=== PATIENT | male | born 1975 | race African-American/Black ===

== ENCOUNTER 2019-07-08 06:22 | Inpatient (IN) ==
[2019-07-08] MEDS ORDERED: ZOFRAN IV ONE (06:52)
--- NOTE | 2019-07-08 06:52 | PROVIDER DOCUMENTATION ---
HPI-Abdominal Pain/GI Problem - General Chief Complaint: Weakness Stated Complaint: LOW BP Time Seen by Provider: 07/08/19 06:41 Source: patient Allergies/Adverse Reactions: Patient Allergies Allergy/AdvReac Type Severity Reaction Status Date / Time No Known Allergies Allergy Verified 07/08/19 06:31 Home Medications: Home Medication List Medication Instructions Recorded Confirmed Last Taken Type Amlodipine Besylate 10 mg PO BID 06/06/15 07/08/19 08/11/18 06:00 History Folic Acid/Vit B Complex and C 1 tab PO DAILY 04/20/18 07/08/19 08/11/18 06:00 History [Dialyvite Tablet] Labetalol HCl 300 mg PO BID 04/20/18 07/08/19 08/11/18 06:00 History Iron Carbonyl/Ascorbic Acid 1 tab PO BID #120 tab 04/24/18 07/08/19 08/11/18 06:00 Rx [Icar-C] Albuterol Sulfate [Proair Hfa] 1 puff INH DAILY 07/08/19 07/08/19 Unknown History Budesonide/Formoterol Fumarate 1 puff INH DAILY 07/08/19 07/08/19 Unknown History [Symbicort 160-4.5 Mcg Inhaler] Sevelamer Carbonate 1 tab PO TID 07/08/19 07/08/19 Unknown History - History of Present Illness-ABD Nature of Presenting Problems: Presents to the with complaints of nausea and vomiting that started around 2am this morning. He states that he has vomited about 10-12 times and is vomiting up black stuff. He denies any abd ominal pain, diarrhea or constipation. He is ESRD patient and does not make urine. Denies fevers or chills. Denies sick contacts. Did not try anything at home. Review of Systems - Adult - REVIEW OF SYSTEMS - ADULT Constitutional: reports: see HPI Eyes: reports: no symptoms reported Ears, Nose, Mouth & Throat: reports: no symptoms reported Cardiovascular: reports: no symptoms reported Respiratory: reports: no symptoms reported Gastrointestinal: reports: see HPI, hematemesis, nausea, vomiting. denies: constipation, diarrhea Genitourinary: reports: no symptoms reported, see HPI Musculoskeletal: reports: no symptoms reported Integumentary: reports: no symptoms reported Neurological: reports: no symptoms reported Psychiatric: reports: no symptoms reported Endocrine: reports: no symptoms reported Hematologic/Lymphatic: reports: no symptoms reported Allergic/Immunologic: reports: no symptoms reported All Other Systems: Reviewed and Negative Past History - Adult - PAST MEDICAL HISTORY-ADULT Review of Records: reports: Old Records Reviewed Major Childhood Illnesses: reports: denies history Cardiovascular: reports: HTN Respiratory: reports: denies history Gastrointestinal: reports: denies history Obstetrical/Gynecological: reports: denies history Genitourinary: reports: dialysis, kidney disease (reports no problems producing urine) Musculoskeletal: reports: denies history Neurological: reports: denies history Endocrine/Immune: reports: other (gout) Other Conditions: reports: denies history - PRIOR SURGERIES/PROCEDURES Surgical/Procedure History: reports: indwelling device (dialysis shunt ) - IMMUNIZATION STATUS Childhood Immunizations: UTD Flu Vaccine: See Nurse Assessment - FAMILY HISTORY Family History: reviewed, not pertinent Physical Exam-General - PHYSICAL EXAM-ADULT Initial Vital Signs Reviewed: Yes - CONSTITUTIONAL General Appearance: appears well, alert (uncomfortable appearing), mild distress - EYES Eyes: PERRL/EOMI - HEAD, EARS, NOSE, MOUTH & THROAT HENMT: normocephalic/atraumatic - NECK Neck: non-tender, full range of motion, supple, normal inspection - RESPIRATORY Respiratory: chest non-tender, lungs clear, normal breath sounds, no respiratory distress, no accessory muscle use - CARDIOVASCULAR Cardiovascular: normal peripheral pulses, regular rate, rhythm, no murmur - GASTROINTESTINAL (ABDOMEN) Abdominal Exam: normal bowel sounds, non tender, soft - MUSCULOSKELETAL Back Exam: normal inspection Extremity: normal range of motion, non-tender, normal gait, normal inspection, other (fistula on LUE) - SKIN Integumentary: normal color, warm/dry - NEUROLOGIC Neurologic: grossly normal - PSYCHIATRIC Psych/Mental Status: normal mood/affect, oriented x 3 Progress - PLAN OF CARE/RESULTS Progress/Plan/Lab Results: Vital Signs - 8 hr 07/08/19 06:24 Temperature 97.4 F L Pulse Rate 77 Respiratory Rate 16 Blood Pressure 131/75 O2 Sat by Pulse Oximetry 100 Result Diagrams: 07/08/19 07:15 07/08/19 07:15 - REASSESSMENT Reassessment #1 Time Reassessed: 07:40 Status: unchanged (shift change assessment: pt reports coffee grinds emesis since 2a. he also cc: headache. he has a PMHx of GIH as follows: DISCHARGE DIAGNOSES: 1. Pyloric channel ulcer on esophagogastroduodenoscopy performed on 04/21/[address] Kim. hemodynamically stable at present. will obtain stool guiaic, IV protonix ordered w/ NS. Dilaudid for pain) Reassessment #2 Time Reassessed: 08:38 Status: improving (pain improved w/ Rx; Hb stable (@ high end of pt' historic range), stool guiaic pos: will consult w/ Dr. Pham, expect admission via Hospitalist.) - CONSULTS/PCP/HOSPITALIST Notification #1 *Consult/PCP/Hospitalist*: Idalia Time Discussed: 08:52 Consult Disposition: Admit (Dr. Pham also paged.) - CHANGE OF SHIFT REPORT (ED Provider) 1 Report Given and Care Transferred to:: Dr Infante Time of Transfer: 07:00 Items Pending: Labs Departure - Departure Date of Disposition Decision: 07/08/19 Time of Disposition Decision: 08:53 DIAGNOSIS: Upper GI bleeding, ESRD (end stage renal disease) on dialysis Disposition: ADMITTED INPATIENT 09 Certified Medical Emergency: Emergent Condition: Serious Referrals and Follow-Ups: Ronald Vail Jr, MD [Primary Care Provider] - - Critical Care Note This patient required my direct & personal management of CC.: Yes Total Time (mins): 30 Critical Care Statement: This patient required my direct personal management to treat or rule out processes, the absence of which, could potentiallly result in sudden, clinically significant life or limb threatening deterioration. Attestation - Physician/ DOM Attestation The physician spent face to face time with patient:: Yes Advanced Practice Provider documentation review:: Supervising physician onsite and consulted in the evaluation and care of this patient. The physician did have a face to face encounter with the patient.
[2019-07-08 07:33] LABS: BASO# 0.04 X1000 (0.0-0.2); BASO% 0.5 % (0.0-0.8); EOS# 0.06 X1000 (0.0-0.7); EOS% 0.8 % (0.0-10.0); HEMATOCRIT 28.5 % (42.0-52.0); HEMOGLOBIN 9.2 g/dL (14.0-18.0); LYMPH# 1.35 X1000 (1.2-3.4); LYMPH% 17.7 % (20.5-51.1); MCH 30.7 PG (27-31); MCHC 32.3 g/dL (33-37); MONO# 0.58 X1000 (0.11-0.59); MONO% 7.6 % (1.7-9.3); MPV 10.8 FL (7.4-10.4); NEUT% 73.4 % (42.2-75.2); PLT 204 X1000 (130-400); RDW 13.2 % (11.5-14.5); WBC 7.63 X1000 (4.8-10.8)
[2019-07-08] MEDS ORDERED: DILAUDID IV ONE (07:36)
[2019-07-08] MEDS ORDERED: NS 1,000 ML IV ONE (07:36)
[2019-07-08] MEDS ORDERED: SODIUM CHLORIDE 0.9% INJ ONE (07:37)
[2019-07-08] MEDS ORDERED: PROTONIX IV ONE (07:37)
[2019-07-08 07:41] LABS: INR 1.21; PROTIME 15.5 Seconds (11.0-16.0)
[2019-07-08 07:56] LABS: ALB/GLOB RATIO 1.4; ALBUMIN 3.9 g/dL (3.5-5.0); CALCIUM 8.1 mg/dL (8.8-10.2); CREATININE 14.8 mg/dL (0.7-1.2); POTASSIUM 4.2 mmol/L (3.5-5.1); TOTAL BILIRUBIN 0.21 mg/dL (0.20-1.00); TOTAL PROTEIN 6.7 g/dL (6.3-8.3)
--- NOTE | 2019-07-08 08:54 | EKG Report ---
Test Performed on : 07/08/2019 07:19:00 AM Test Reason : EPIGASTRIC PAIN Blood Pressure : / mmHG Vent. Rate : 064 BPM Atrial Rate : 064 BPM P-R Int : 124 ms QRS Dur : 092 ms QT Int : 430 ms P-R-T Axes : 046 022 007 degrees QTc Int : 443 ms Normal sinus rhythm. Nonspecific T wave abnormality Abnormal ECG When compared with ECG of 21-APR-2018 12:11, Nonspecific T wave abnormality now evident in Anterolateral leads Unconfirmed Result
[2019-07-08] MEDS ORDERED: TYLENOL PO PRN (09:00)
[2019-07-08] MEDS ORDERED: ICAR-C PO SCH (09:00)
[2019-07-08] MEDS ORDERED: SODIUM CHLORIDE 0.9% INJ SCH (09:00)
[2019-07-08] MEDS ORDERED: ZOFRAN IV PRN (09:00)
[2019-07-08 09:38] LABS: HEMOGLOBIN A1C 4.5 % (4.8-6.0); IRON SATURATION 83 %; TIBC 197 ug/dL; TOTAL IRON 164 ug/dL (53-167); UNBOUND IRON 33 ug/dL (112-346)
--- NOTE | 2019-07-08 09:42 | HISTORY AND PHYSICAL ---
HISTORY OF PRESENT ILLNESS: Mr. Tejada is a 43-year-old patient of Dr. Ronald Vail. He presented, stating that he was feeling fine until this morning. He developed nausea, abdominal cramping, threw up, and had blood in his emesis or what he described as coffee-grounds material. PAST MEDICAL HISTORY: 1. He has had a pyloric channel ulcer, EGD done in March of [address] Kim, was put on high-dose Protonix. 2. He has chronic kidney disease stage 5D. 3. He has had trouble in the past with constipation. 4. Hypertension. ALLERGIES: He denies any known drug allergies. He does have a history of hypertension. He has a history of obstructive sleep apnea and apparently in the past, they found a pyloric channel ulcer. He was using nonsteroidal anti- inflammatories. He has been on proton pump inhibitor and presents again with hematemesis. PHYSICAL EXAMINATION: VITAL SIGNS: Temperature 97.4 degrees, pulse 63, respirations 12, blood pressure 120/76. HEENT: Pupils are equal and round. LUNGS: Clear in all lung renee. CARDIOVASCULAR EXAMINATION: Regular rhythm and rate without murmur or S3. ABDOMEN: Soft. No abdominal tenderness. SKIN: Warm and dry. Conjunctivae pink. Gingiva color looks good. LABORATORY DATA: White count 7630, hematocrit is 28, hemoglobin 9.2, platelet count 208,000. Sodium 141, potassium 4.2, chloride 93, BUN 120, creatinine is 14.8, blood sugar 96. AST is 10, ALT is 11, alkaline phosphatase is 45. Prothrombin time is 15.5, INR 1.21, PTT is 28. His stool apparently was Hemoccult positive. ASSESSMENT AND PLAN: 1. Upper gastrointestinal bleed, history of pyloric channel ulcer in the past. I think the last esophagogastroduodenoscopy was on 04/21/[address] Kim. He was on high-dose Protonix for 3 months and then I think they tapered that down. He also was using nonsteroidals at that time. 2. Anemia. We will watch his hematocrit and hemoglobin. 3. End-stage renal disease or chronic kidney disease stage 5D, hemodialysis Mondays, Wednesdays, and Fridays. His volume status looks good. Electrolytes look good. Acid-base status looked good. 4. Continue his bowel regimen if needed. REVIEW OF HIS ORDERS: On Symbicort 160/4.5 one puff daily, folic acid, vitamin B complex and vitamin C 1 tablet a day, iron/carbonyl/ascorbic acid 1 tablet b.i.d., labetalol 300 mg p.o. b.i.d., sevelamer 1 tablet t.i.d., amlodipine 10 mg b.i.d. We will continue that regimen and put on high-dose proton pump inhibitors, 40 mg p.o. twice a day. cc: Fidel Zamora MD
[2019-07-08] MEDS ORDERED: PRILOSEC PO SCH (10:07)
[2019-07-08] MEDS: PROTONIX 80 MG in NS 80 ML IV SCH ×2 (11:27→21:01)
[2019-07-08 11:36] LABS: FREE T4 1.19 ng/dL (0.93-1.70); TSH 1.36 uIUmL (0.27-4.20)
[2019-07-08] MEDS ORDERED: DILAUDID IV PRN (12:34)
--- NOTE | 2019-07-08 13:13 | PROGRESS NOTE ---
DATE: 07/08/2019 Mr. Tejada is feeling much better. He is breathing comfortably. He does complain of constipation so I am going to start him on some MiraLAX, give him some milk of magnesia. OBJECTIVE: Temperature 98.5 degrees, pulse 60, respirations 16, blood pressure 143/76. Pupils are equal and round.Lungs: Clear in all lung renee. Cardiovascular: Regular rhythm and rate without murmur or S3. Abdomen: Soft. Skin: Warm and dry. ASSESSMENT AND PLAN: Good urine output by report. No new lab today. Note his creatinine is 14.8. We will need to continue to follow that. He is complaining of some pain and so I just put him in from the emergency room. He has a history of epigastric pain and of course upper gastrointestinal bleeding. I will let him have some Dilaudid for now. cc: Fidel Zamora MD
--- NOTE | 2019-07-08 14:24 | Diag Imaging Result Doc PS360 ---
EXAM: CT ABDOMEN/PELVIS W/O CONTRAST INDICATION: gib; abd pain TECHNIQUE: This exam was performed using automated exposure control, adjustment of mA or kV according to patient size, and/or use of iterative reconstruction technique. COMPARISON: 04/20/2018 FINDINGS: There is stable chronic pleural thickening as well as parenchymal fibrosis at the right lung base there are small calcifications associated with the pleural thickening. The liver, gallbladder, spleen, pancreas, and adrenal glands are essentially unremarkable. There is marked bilateral renal atrophy and a couple of low dense cystic appearing lesions associated with the right kidney, stable. The urinary bladder is nondistended. The appendix is normal. There are a few loops of small bowel that are mildly distended and contain gas. These are predominantly on the left side of the abdomen. Consider mild ileus related to enteritis. However, no significant bowel wall thickening is appreciated. There is nothing to indicate bowel obstruction. The remainder of the GI tract is grossly unremarkable. No focal inflammatory changes, free abdominal gas, or free fluid is identified. IMPRESSION: 1.Several mildly distended gas-filled loops of small bowel that are nonspecific. Consider mild ileus. 2.Other incidental/nonacute findings detailed above that are essentially stable as compared to the previous study. Electronically signed by Og Burnette 07/08/2019 2:22 PM
[2019-07-08] MEDS: NEPHRO-VITE PO SCH (15:08)
[2019-07-08] MEDS: NORVASC PO SCH ×2 (15:09→20:49)
[2019-07-08] MEDS: RENAGEL PO SCH ×2 (15:10→16:24)
[2019-07-08] MEDS: TRANDATE PO SCH ×2 (15:10→20:49)
[2019-07-08] MEDS: CARAFATE LIQUID PO SCH ×2 (15:11→20:49)
[2019-07-08 15:47] LABS: HEMOGLOBIN 7.4 g/dL (14.0-18.0)
[2019-07-08 15:48] LABS: HEMATOCRIT 23.3 % (42.0-52.0)
--- NOTE | 2019-07-08 16:38 | ED EKG INTERP ---
This chart was entered by Shanita Sheriff Scribe, acting as scribe for George Infante MD. EKG Interpretation - EKG Time of EKG reading by physician:: 07:33 EKG Read and Signed by:: George Infante EKG Interpretation (*Must complete 3 of following elements*): Abnormal Rate: 64 Rhythm: NSR [place]: normal QRS: normal CT Interval: normal ST Wave: non-specific ST changes Attestation - Physician/ DOM Attestation Patient care was provided by Advanced Practice Provider:: No The physician spent face to face time with patient:: Yes Advanced Practice Provider documentation review:: Supervising physician onsite and consulted in the evaluation and care of this patient. The physician did have a face to face encounter with the patient. This chart was documented by the indicated scribe, (Shanita Sheriff Scribe) and accurately reflects the services I performed and decisions made by me, George Infante MD, as attested by the provider's signature.
--- NOTE | 2019-07-08 17:15 | GASTROENTEROLOGY CONSULTATION ---
DATE: 07/08/2019 GASTROENTEROLOGY CONSULTATION: REQUESTING PHYSICIAN: Dr. Fidel Zamora. PRIMARY CARE PHYSICIAN: Dr. Ronald Vail. REASON FOR CONSULTATION: Nausea, vomiting, and vomiting coffee grounds. HISTORY OF PRESENT ILLNESS: Mr. Tejada is a 43-year-old male who was admitted today for new onset of nausea, vomiting, and coffee-ground emesis. The patient has history of chronic back pain. It got exacerbated for the last 3 weeks, and he has been taking Aleve every day for the last 3 weeks. This morning around 2 a.m. when he woke up, he had nausea and vomiting to about 8 to 10 times and noticed some coffee-colored brown fluid in the vomitus. He denies any Blood in the stools. He had a history of ulcer on last EGD done a few years ago. According to the records, he had a pyloric channel ulcer on EGD in March [address] Kim. The patient has a history of end-stage renal disease on hemodialysis Tuesday, Tuesday, and Tuesday being managed by Dr. Pham. PAST MEDICAL HISTORY: 1. Pyloric channel ulcer on last EGD in March [address] Kim. 2. Chronic kidney disease. 3. End-stage renal failure on hemodialysis. 4. Constipation. 5. Hypertension. 6. Obstructive sleep apnea. 7. History of NSAID abuse. PAST SURGICAL HISTORY: Dialysis shunt placement. SOCIAL HISTORY: Denies any alcohol, tobacco, or illicit drug abuse. ALLERGIES: No known drug allergies. MEDICATIONS IN THE HOSPITAL: Include Dilaudid 1 mg IV every 3 hours as needed. Tylenol. Albuterol inhaler. Amlodipine. Budesonide/formoterol. Folic acid/vitamin B complex. Iron C b.i.d. Labetalol 300 mg p.o. b.i.d. Zofran 4 mg IV every 4 hours as needed. Protonix drip. Renagel 800 mg p.o. t.i.d. Carafate 1 g every 6 hours. The patient currently n.p.o. except for ice chips. REVIEW OF SYSTEMS: Denies any fevers, rigors, chills, chest pain, shortness of breath. Denies any melena. Denies any blood in the stools. Does complain of coffee-round emesis. He does complain of abdominal pain in the epigastric region which is now improved with IV pain control. He does have chronic back pain. He has had kidney failure. He is on hemodialysis Tuesday, Tuesday, and Tuesday. He denies any neurologic complaints. PHYSICAL EXAMINATION: Vital signs: Temperature of 98.8, pulse rate 57, respiratory rate 18, blood pressure 132/72, saturating 100% on room air. Body weight of 250 pounds, BMI 36.9 kg/m2. General: Moderately nourished lying in bed, in no acute distress. HEENT: Pale conjunctivae. No icterus. Pupils equal, reactive to light. Neck: Supple. Abdomen: Discomfort in epigastrium. No rebound or guarding. Extremities: No cyanosis or clubbing. Neurologic: Alert, awake, oriented x3. LABORATORY DATA: Hemoglobin and hematocrit 7.4 and 23.3, white count of 7.63, platelet count of 204,000. Sodium 141, potassium 4.2, chloride 93, bicarb 29, anion gap of 19, BUN of 120, creatinine 14.8, glucose of 96, calcium is 8.1. Iron level of 164, percent saturation of 83, ferritin of 965. AST 10, ALT 11, alkaline phosphatase is 45, total protein 6.7, albumin 3.9, Amylase of 102, lipase of 16. B12 of 715, folate of 12. TSH 1.3, free T4 of 1.9. Stool for occult blood is positive. CT scan of the abdomen and pelvis was done which showed marked bilateral renal atrophy. There are a few loops of small bowel that are mildly distended and containing gas. They are predominantly on the left side of the abdomen. Consider mild ileus related to enteritis. However, no significant bowel wall thickening was appreciated. There is nothing to indicate bowel obstruction. IMPRESSION: 1. Coffee-ground emesis. 2. Anemia. 3. End-stage renal disease on hemodialysis Tuesday, Tuesday, Tuesday. 4. History of a large ulcer in March 2018. 5. History of nonsteroidal anti-inflammatory drug abuse or back pain. He has been taking Aleve every day for the last 3 weeks. 6. Hypertension. 7. History of obstructive sleep apnea. RECOMMENDATIONS: 1. We will continue Protonix drip. We will continue watch hemoglobin and hematocrit. We will transfuse 1 unit of blood transfusion. Hematocrit was low at 25%. We will schedule him for EGD tomorrow morning under anesthesia. The risks, benefits, indications, and alternatives to the procedure were discussed with the patient and all questions answered. 2. The patient will continue to have hemodialysis per nephrology team. The patient does have elevated iron percentage in the blood, so we will discontinue his Iron C. We will order hemochromatosis genotype to evaluate for iron overload. The patient was counseled to quit using NSAIDs completely. 3. Further recommendations to follow pending hospital course. The above plans discussed with the patient and all questions answered. Please call us with any further questions. cc: MD Fidel Davila MD Manish Arora, MD MTDD
[2019-07-08] MEDS ORDERED: NS 500 ML ONE (18:43)
[2019-07-08] MEDS ORDERED: NS 500 ML IV PRN (18:45)
[2019-07-08] MEDS ORDERED: PROTONIX IV SCH (21:00)
[2019-07-08 22:15] LABS: HEMATOCRIT 26.5 % (42.0-52.0); HEMOGLOBIN 8.4 g/dL (14.0-18.0)
[2019-07-09] MEDS: CARAFATE LIQUID PO SCH ×4 (01:53→21:37)
[2019-07-09 02:46] LABS: HEMATOCRIT 25.1 % (42.0-52.0); HEMOGLOBIN 8.1 g/dL (14.0-18.0)
[2019-07-09 05:48] LABS: BASO# 0.06 X1000 (0.0-0.2); BASO% 0.8 % (0.0-0.8); EOS# 0.14 X1000 (0.0-0.7); EOS% 1.8 % (0.0-10.0); HEMATOCRIT 23.8 % (42.0-52.0); HEMOGLOBIN 7.6 g/dL (14.0-18.0); IMM GRAN# 0.02 X1000 (0.0-0.04); IMM GRAN% 0.3 % (0.0-0.5); LYMPH# 2.39 X1000 (1.2-3.4); LYMPH% 31.1 % (20.5-51.1); MCH 29.9 PG (27-31); MCHC 31.9 g/dL (33-37); MCV 93.7 FL (81-99); MONO# 0.39 X1000 (0.11-0.59); MONO% 5.1 % (1.7-9.3); MPV 10.8 FL (7.4-10.4); NEUT# 4.68 X1000 (1.4-6.5); NEUT% 60.9 % (42.2-75.2); PLT 161 X1000 (130-400); RBC 2.54 XMIL (4.7-6.1); RDW 13.8 % (11.5-14.5); WBC 7.68 X1000 (4.8-10.8)
[2019-07-09 05:58] LABS: INR 1.25; PROTIME 15.9 Seconds (11.0-16.0)
[2019-07-09 05:59] LABS: PTT 30.5 Seconds (22.3-41.8)
[2019-07-09] MEDS ORDERED: HEPARIN IV PRN (06:09)
[2019-07-09] MEDS ORDERED: TIGHT: 0.2 ML/HR FOR DIALYSIS MISC PRN (06:09)
[2019-07-09] MEDS ORDERED: NS 2,000 ML MISC PRN (06:09)
[2019-07-09] MEDS: PROTONIX 80 MG in NS 80 ML IV SCH (06:30)
[2019-07-09 06:46] LABS: ALB/GLOB RATIO 1.1; ALBUMIN 3.1 g/dL (3.5-5.0); CALCIUM 8.4 mg/dL (8.8-10.2); MAGNESIUM 2.2 mg/dL (1.5-2.7); POTASSIUM 4.6 mmol/L (3.5-5.1); TOTAL BILIRUBIN 0.21 mg/dL (0.20-1.00); TOTAL PROTEIN 5.9 g/dL (6.3-8.3)
[2019-07-09 06:53] LABS: CREATININE 17.8 mg/dL (0.7-1.2)
[2019-07-09] MEDS: SYMBICORT 160/4.5 MICROGM INHALER INH SCH (07:56)
[2019-07-09] MEDS: VENTOLIN HFA INH SCH (07:56)
[2019-07-09] MEDS ORDERED: DIPRIVAN 1% ONE (08:12)
[2019-07-09] MEDS ORDERED: FENTANYL ONE (08:13)
--- NOTE | 2019-07-09 08:45 | NEPHROLOGY CONSULTATION ---
DATE: 07/09/2019 Chief complaint: I threw up 9 or 10 times yesterday morning with black stuff in it. History of present illness: Mr. Tejada is a 43-year-old black male who is known to us. He started having nausea and vomiting yesterday morning and says he vomited 9 or 10 times with coffee ground emesis noted. He has a past medical history of pyloric channel ulcer, hypertension, and chronic kidney disease stage 5D with routine hemodialysis Tuesday and Tuesday. He reports having a new onset of upper back pain that runs across his shoulders and neck that he has treated with Aleve 1 to 2 tablets, three times a day for the past week. His hemoglobin was 7.4 on presentation and received one unit packed red blood cells in the emergency department. Past medical history: pyloric channel ulcer treated by Dr. Kim in 2018 with high-dose Protonix, hypertension, chronic kidney disease stage 5D with routine hemodialysis Tuesday and Tuesday. Past surgical history: AV fistula placement Social history: denies current tobacco, alcohol, or illicit drug use. Family history: non-contributory Allergies: no known allergies. Home medications: Albuterol sulfate, amlodipine, symbicort inhaler, folic acid/vitamin B and C, Icar-C, labetalol HCl, sevelamer carbonate. Review of systems: Neurological: denies any altered mentation. Eyes: Denies Blurriness, dryness, or change in visual acuity. ENT: denies tinnitus change in hearing or discharge. Integumentary: denies color change itching or rashes. Respiratory: denies shortness of breath or orthopnea. Cardiovascular: denies chest pain or palpitations. G.I: admits to nausea and vomiting. Denies of Chaitanya tenderness. : denies any change in color, amount, or odor. Endocrine: denies excessive thirst hunger. Musculoskeletal: voices New onset upper back pain across scapula region that extends to his neck. Physical Exam: Vital signs. Temperature 98.5, pulse 61, respirations 18, blood pressure 120/51, 100% on room air. General: : middle age black male in no acute distress. Skin: Warm and dry. No rashes or lesions noted. HEENT: a traumatic, normocephalic. Pupils equal, round and reactive to light. Mucous membranes moist. Next: supple, no JVD appreciated. Cardiovascular: S1, S2. Regular rate and rhythm no murmur or gallop noted. Lungs: clear to auscultation. Equal air excursion. Abdomen: soft, nontender nondistended. Bowel sounds present. : not inspected Neurologic: alert and oriented to person place and time. Labs: WBC 7.68, RBC 2.54, hemoglobin 8.1, hematocrit 25.1, platelet count 161, PT 15.9, INR 1.25, PTT 30.5, sodium 142, potassium 4.6, chloride 96, carbon dioxide 23, anion gap 23, BUN 170, creatinine 17.8, estimated GFR 4, Calcium 8.4, magnesium 2.2, calculated osmolality 338, total protein 5.9, albumin 3.1 Imaging:CT abdomen pelvis without contrast impression several mildly distended gas filled loops of small bowel that are non-specific. Considered mild ileus. Assessment and Plan Upper G.I. bleed. Presumably secondary to nonsteroidal use. He is having back pain and neck pain. Avoid transfusion unless hemoglobin is below seven because he is attempting to get on the active transplant list. He will have routine dialysis today following EGD. Educated him on avoiding nonsteroidals. Chronic kidney disease stage 5D. His BUN is 170 and creatinine is 17.8. He will receive his routine hemodialysis treatment today. Electrolytes. Stable. Acid base balance. Stable. Anemia. Hemoglobin 8.1 avoid transfusion unless his hemoglobin is below seven because he is attempting to get on active transplant list. cc: Edmund Pham MD [facility]
--- NOTE | 2019-07-09 09:09 | ENDOSCOPY OPERATIVE NOTE ---
[facility] ENDOSCOPY OPERATIVE NOTE , PATIENT: Jani Tejada ADMISSION DATE: MR#: [id number] : 1975 EGD PROCEDURE REPORT PROCEDURE DATE: 07/09/2019 SURGEON: Feliberto Fitzgerald MD STATUS: inpatient [employer] SAL[employer] DIRECTOR: PREOPERATIVE DIAGNOSIS: The patient is a 43 yr old male here for an EGD due to Coffee ground emesis and Anemia, ESRD on HD M/W/F, Iron overload iron saturation of 83%. PROCEDURE PERFORMED: EGD, diagnostic MEDICATIONS: Per Anesthesia TOPICAL ANESTHETIC: none CONSENT: The patient understands the risks and benefits of the procedure and understands that these r isks include, but are not limited to: sedation, allergic reaction, infection, perforation and/or bleeding. Alternative means of evaluation and treatment include, among others: physical exam, x-rays, and/or surgical intervention. The patient elects to proceed with this endoscopic procedure. HISORY AND PHYSICAL: 07/09/2019 DESCRIPTION OF PROCEDURE: During intra-op preparation period all mechanical and medical equipment was checked for proper function. Hand hygiene and appropriate measures for infection prevention was taken. After the risks, benefits and alternatives of the procedure were thoroughly explained, Informed consent was verified, confirmed and timeout was successfully executed by the treatment team. The patient was anesthetized with topical anesthesia and the [id number]-[id number] ([id number]) endoscope was introduced through the mouth and advanced to the second portion of the duoden um. Retroflexion was performed in the stomach and revealed no abnormalities. The gastroscope was then slowly withdraw n and removed. ESOPHAGUS: Z line at 42 cms. The mucosa of the esophagus appeared normal. STOMACH: Two non-bleeding ulcers ranging between 3-5 mm in size ranging between 3-7mm in size were fo und at the pylorus. DUODENUM: Mild duodenal inflammation was found in the duodenal bulb and 1st part duodenum. The duod enal mucosa showed no abnormalities in the 2nd part of the duodenum. SPECIMENS REMOVED: No ADVERSE EVENTS: There were no complications. POSTOPERATIVE DIAGNOSIS: 1. Z line at 42 cms 2. The mucosa of the esophagus appeared normal 3. Two ulcers ranging between 3-5 mm in size were found at the pylorus 4. Duodenal inflammation was found in the duodenal bulb and 1st part duodenum 5. The duodenal mucosa showed no abnormalities in the 2nd part of the duodenum RECOMMENDATIONS: Start Omeprazole 40 mg every day for 90 days on discharge; Avoid NSAIDs; RTC in 4 weeks. Will need repeat EGD in 3 months to document healing of Gastric pyloric channel ulcers. REPEAT EXAM: Return in 3 months for EGD. Feliberto Fitzgerald MD eSigned: Feliberto Fitzgerald MD 07/09/2019 9:09 AM cc: PATIENT NAME: Jani Tejada MR#: [id number]
[2019-07-09] MEDS ORDERED: PROTONIX IV SCH (10:23)
[2019-07-09] MEDS: RENAGEL PO SCH ×3 (10:41→16:53)
[2019-07-09] MEDS: TRANDATE PO SCH ×2 (10:42→21:37)
[2019-07-09] MEDS: NEPHRO-VITE PO SCH (10:43)
[2019-07-09 14:39] LABS: HEMATOCRIT 23.9 % (42.0-52.0); HEMOGLOBIN 7.8 g/dL (14.0-18.0)
--- NOTE | 2019-07-09 16:20 | PROGRESS NOTE ---
DATE: 07/09/2019 SUBJECTIVE: Mr. Tejada feels much better. Tolerating dialysis. Remains afebrile. OBJECTIVE: Vital signs: Temperature 97.9 degrees, pulse 61, respirations 14, blood pressure 136/71. HEENT: Pupils are equal and round. Lungs: Clear. Abdomen: Soft. Skin: Warm and dry. ASSESSMENT AND PLAN: 1. Upper gastrointestinal bleed, probably secondary to nonsteroidal anti-inflammatory use. Try not to give a transfusion unless his hemoglobin is less than 7. He is on the active transplant list. He got dialysis today. His volume status and electrolytes look good. Hematocrit 23, hemoglobin 7.[address] Fitzgerald is evaluating. I do not see any change in his current orders. He had an EGD. The mucosa of the esophagus appeared normal. Two nonbleeding ulcers ranging between 3 and 5 mm in size were found in the pylorus, so have him hold nonsteroidal anti-inflammatories. Can continue proton pump inhibitors and advance his diet as we can. cc: Fidel Zamora MD
[2019-07-09] MEDS: NORVASC PO SCH ×2 (16:52→21:37)
[2019-07-09 21:07] LABS: HEMATOCRIT 21.7 % (42.0-52.0)
[2019-07-09] MEDS: PROTONIX PO SCH (21:37)
[2019-07-09] MEDS: PERICOLACE PO SCH (21:37)
[2019-07-10] MEDS: DILAUDID IV PRN ×2 (02:16→20:24)
[2019-07-10] MEDS: CARAFATE LIQUID PO SCH ×2 (02:18→09:06)
[2019-07-10 06:37] LABS: BASO# 0.07 X1000 (0.0-0.2); BASO% 1.2 % (0.0-0.8); EOS# 0.22 X1000 (0.0-0.7); EOS% 3.7 % (0.0-10.0); HEMATOCRIT 22.1 % (42.0-52.0); HEMOGLOBIN 6.9 g/dL (14.0-18.0); LYMPH# 1.72 X1000 (1.2-3.4); LYMPH% 29.1 % (20.5-51.1); MCH 29.4 PG (27-31); MCHC 31.2 g/dL (33-37); MONO# 0.46 X1000 (0.11-0.59); MONO% 7.8 % (1.7-9.3); MPV 11.4 FL (7.4-10.4); NEUT# 3.44 X1000 (1.4-6.5); NEUT% 58.2 % (42.2-75.2); PLT 157 X1000 (130-400); RBC 2.35 XMIL (4.7-6.1); RDW 13.8 % (11.5-14.5); WBC 5.91 X1000 (4.8-10.8)
[2019-07-10 06:41] LABS: ALB/GLOB RATIO 1.1; CALCIUM 7.5 mg/dL (8.8-10.2); TOTAL BILIRUBIN 0.24 mg/dL (0.20-1.00); TOTAL PROTEIN 5.7 g/dL (6.3-8.3)
[2019-07-10 07:26] LABS: CREATININE 13.1 mg/dL (0.7-1.2)
[2019-07-10] MEDS: SYMBICORT 160/4.5 MICROGM INHALER INH SCH (07:53)
[2019-07-10] MEDS: VENTOLIN HFA INH SCH (07:58)
[2019-07-10] MEDS: RENAGEL PO SCH ×3 (09:05→16:53)
[2019-07-10] MEDS: TRANDATE PO SCH ×3 (09:05→20:22)
[2019-07-10] MEDS: NEPHRO-VITE PO SCH (09:05)
[2019-07-10] MEDS: PROTONIX PO SCH ×2 (09:05→20:22)
[2019-07-10] MEDS: NORVASC PO SCH ×3 (09:05→20:22)
[2019-07-10] MEDS: PERICOLACE PO SCH ×2 (09:06→20:22)
--- NOTE | 2019-07-10 09:42 | NEPHROLOGY PROGRESS NOTE ---
DATE: 07/10/2019 Subjective: patient lying in bed watching TV, eating breakfast, voices he feels better. Denies shortness of breath, nausea and vomiting, orthopnea, or decreased appetite. Objective: bottle signs. 97.9 temperature, pulse 66, respirations 14, blood pressure 136/61, 100% on room air. General: middle aged black male lying in bed with no acute distress Skin: Warm and dry. No rashes or lesions noted. HEENT: a traumatic, normocephalic. Pupils equal, round and reactive to light. Mucous membranes moist. Next: supple, no JVD appreciated. Cardiovascular: S1, S2. Regular rate and rhythm no murmur or gallop noted. Lungs: clear to auscultation. Equal air excursion. Abdomen: soft, nontender nondistended. Bowel sounds present. : not inspected Extremities: Left fistula with positive thrill and bruit. Trace edema to BLE Neurologic: alert and oriented to person, place, and time. Labs: WBC 5.91, RBC 2.35, hemoglobin 6.9, hematocrit 22.1, platelet count 157, sodium 141, potassium 4.0, chloride 97, carbon dioxide 26, anion gap 18, BUN 103, creatinine 313.1, estimated GFR five, calcium 7.5, magnesium 2.0, albumin 3.0, proteins 5.7. Input zero, output 1284. Impression: Upper G.I. bleed. Presumably secondary to nonsteroidal use. Hemoglobin 6.9 today, which is essentially no change from yesterday. Continue to hold transfusion for his attempt to get on the kidney transplant list. In the event that he can go home we will have his hemoglobin checked in the dialysis clinic on Tuesday and Tuesday. Chronic kidney disease stage 5D. His BUN is 103 and creatinine 13.1 he received routine hemodialysis yesterday. Electrolytes. Stable. Acid base balance. Stable. Anemia. Hemoglobin 6.9 today which is essentially no change from yesterday. cc: MD TYSON Antoine
--- NOTE | 2019-07-10 11:32 | GASTROENTEROLOGY PROGRESS NOTE ---
DATE: 07/10/2019 SUBJECTIVE: Mr. Tejada 43 year old male, resting in bed. He denied any nausea, vomiting, diarrhea or abdominal pain. He is currently on 2 L nasal cannula. OBJECTIVE: Vital Signs: Temperature 97.5 degrees, pulse 66, respirations 14, blood pressure 132/84, and oxygen saturation 96 percent on 3 L nasal cannula. His weight is 249.9 pounds. BMI is 36.9 kg/m2. General: He is alert and oriented times 3 in no acute distress. HEENT: Pale conjunctivae. No icterus. PERRL. Neck: Supple. Lungs: Clear to auscultation anterior and posterior. Cardiovascular: Regular rate and rhythm. No murmurs, rubs, or gallops heard on auscultation. Abdomen: Soft, distended, and nontender. Active bowel sounds heard in all 4 quadrants. Extremities: No cyanosis, clubbing, or edema. Pedal pulses 2+ bilaterally. Neurological: Alert and oriented x3. LABORATORY: WBC is 5.91, RBCs 2.35, hemoglobin 6.9, hematocrit 22.1, and platelet count 157,000. Sodium 141, potassium 4.0, chloride 97, carbon dioxide 22, anion gap is 18. BUN is 103, creatinine is 13.1, and calcium is 7.5. AST is 8, ALT is 9, and alkaline phosphatase 40. Abdominal CT and pelvis on 07/08 showed severe mildly distended gas-filled loops of small bowel that are nonspecific. Mild ileus. We did an EGD yesterday and it showed that the mucosa of the esophagus appeared normal. The stomach had 2 nonbleeding ulcers ranging from 3 to 5 mm in size and 3 to 7 mm in size were found in the pylorus. Mild duodenal inflammation was found in the duodenal bulb and first part of the duodenum. ASSESSMENT AND PLAN: GI bleed Coffee ground emesis Anemia ESRD on dialysis Hypertension History of large ulcer in 2018 History of NSAID's abuse for chronic back pain History of Obstructive sleep apnea PLAN: The plan is to continue him with the GI prophylaxis Protonix twice a day for his GI bleed and ulcers. 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 The patient receives dialysis Tuesday, Tuesday, and Tuesday. He has denied any further blood in the stools. He denied any nausea, vomiting, or any hematemesis. We will continue to follow his CBC and BMP. Follow the plan of care per the primary team and the Nephrology team. This plan was discussed with Dr. Mayfield. Please call us with any further questions or concerns. Dictated by LIZZ Cabello for Jabari Mayfield MD Physician Attestation I have seen and examined the patient. I have discussed and reviewed the the note by Sarah ZAMUDIO and agree with findings and plan as documented. Presented with NSAID-induced PUD. Recommend PPI BID and repeat EGD in 3 months to check for ulcer healing. Avoid NSAIDs/ASA. Asymptomatic from anemia; will hold transfusion given concern for developing antibodies for renal team. Will follow with you. MTDD
--- NOTE | 2019-07-10 16:30 | PROGRESS NOTE ---
DATE: 07/10/2019 S:Pt has no major complaints, no evidence of bleeding. O: AVSS CV: RRR no m/g/r PULM: BBS-CTA GI: soft NT/ND BS:+ LABORATORY DATA: Hemoglobin and hematocrit of 6 and 22, creatinine 13.1. PROBLEM LIST: 1. Gastrointestinal bleed. Hemoglobin and hematocrit is still very low, but we are not looking at transfusing him because he is a transplant candidate. Basically the hemoglobin and hematocrit is stable for the last 24 hours. It did drop since the . I guess we will see what his levels look like tomorrow. He is not really iron deficient, but I do not know if those levels were checked after he got blood. He was transfused 1 unit on the I think and his iron labs were done on the , but I am not entirely sure they were done after the transfusion or not. In any case, we are just kind of watching and hopefully we will not have to come to doing any other things. He is on proton pump inhibitors. 2. End-stage renal. He is a transplant candidate. Dr. Pham is following from that standpoint. Anticipate discharge at the discretion of the consultants. cc: Clint Cardona MD MTDD
[2019-07-11 05:22] LABS: BASO# 0.05 X1000 (0.0-0.2); BASO% 0.9 % (0.0-0.8); EOS% 3.6 % (0.0-10.0); HEMATOCRIT 20.5 % (42.0-52.0); HEMOGLOBIN 6.5 g/dL (14.0-18.0); LYMPH# 1.51 X1000 (1.2-3.4); LYMPH% 27.4 % (20.5-51.1); MCHC 31.7 g/dL (33-37); MCV 94.5 FL (81-99); MONO# 0.36 X1000 (0.11-0.59); MONO% 6.5 % (1.7-9.3); MPV 11.1 FL (7.4-10.4); NEUT% 61.6 % (42.2-75.2); PLT 155 X1000 (130-400); RBC 2.17 XMIL (4.7-6.1); RDW 13.5 % (11.5-14.5); WBC 5.52 X1000 (4.8-10.8)
[2019-07-11 06:03] LABS: CREATININE 15.2 mg/dL (0.7-1.2)
[2019-07-11 06:04] LABS: ALB/GLOB RATIO 1.4; ALBUMIN 3.4 g/dL (3.5-5.0); CALCIUM 7.7 mg/dL (8.8-10.2); POTASSIUM 4.1 mmol/L (3.5-5.1); TOTAL BILIRUBIN 0.27 mg/dL (0.20-1.00); TOTAL PROTEIN 5.9 g/dL (6.3-8.3)
[2019-07-11] MEDS ORDERED: NS 500 ML IV ONE (06:12)
[2019-07-11] MEDS ORDERED: HEPARIN IV PRN (06:14)
[2019-07-11] MEDS ORDERED: NS 2,000 ML MISC PRN (06:14)
[2019-07-11] MEDS ORDERED: TIGHT: 0.2 ML/HR FOR DIALYSIS MISC PRN (06:14)
[2019-07-11] MEDS: VENTOLIN HFA INH SCH (08:05)
--- NOTE | 2019-07-11 08:55 | NEPHROLOGY PROGRESS NOTE ---
DATE: 07/11/2019 TIME SEEN: 0710. SUBJECTIVE: Mr. Tejada is resting quietly in bed. Head of the bed is slightly elevated. Continues to complain of neck and back pain. OBJECTIVE: Vital Signs: Temperature 97.9 degrees, blood pressure 146/79, heart rate 76, respirations 16. He is on room air. Last recorded saturation 100%. He has had 0 recorded and 150 out. Laboratory Data: Sodium 140, potassium 4.1, chloride is 97, CO2 is 25, BUN 111, creatinine 15.2, glucose is 99, anion gap 18, calcium 7.7, magnesium 2, albumin 3.4. White count 5.52, hemoglobin 6.5, hematocrit 20.5, platelet count 155,000. Physical Examination: General: This is a 44-year-old, male. He is resting quietly in bed. He appears chronically ill. No acute distress. Skin is warm and dry. HEENT: Normocephalic and atraumatic. Conjunctivae are pale. He has D[place]. Mucous membranes are dry. Neck: Supple. Trachea midline. No evidence of JVD. Cardiovascular: Regular rate and rhythm. No murmur or gallop appreciated. Lungs: Clear to auscultation bilaterally. Equal excursion, on room air. Abdomen: Soft, large, round, nontender. Positive bowel sounds. Genitourinary: Not inspected. Minimal void with dialysis assist. Extremities: Have no edema. No clubbing or cyanosis. Left fistula with positive thrill. Good bruit. Neurological: Alert and oriented x3. ASSESSMENT AND PLAN: 1. Chronic kidney disease stage 5D. The patient is due for his routine dialysis treatment today. We will place him on a 2 K bath. He is to dialyze for 3-1/2 hours. We will plan to pull patient to his outpatient dry weight. 2. Electrolytes and acid-base balance, with correction on dialysis. 3. Anemia. Hemoglobin of 6.5. We will transfuse 2 units of packed red blood cells while on dialysis today. From our perspective, the patient is able to go home after this treatment, to be followed up with gastroenterology as indicated and on dialysis per an outpatient prescription basis. 4. Neck pain. The patient had been taking Aleve and nonsteroidal anti- inflammatories over the counter which may have contributed to his gastrointestinal bleed. Due to this, we will have a physical therapy evaluation for his neck pain. We will order a CRP with possible followup with CT without contrast. I would like to thank you for allowing us to follow with this patient. Dictated by LIZZ Byrd for Edmund Pham MD Face to face encounter, data reviewed, discussed with Camden Velarde on 07/11/19. I agree with the above assessment and plan of care. cc: LIZZ Byrd MD [facility]
[2019-07-11] MEDS ORDERED: ULTRAM PO SCH (09:00)
[2019-07-11] MEDS: TRANDATE PO SCH (09:06)
[2019-07-11] MEDS: NORVASC PO SCH (09:07)
[2019-07-11] MEDS: RENAGEL PO SCH ×2 (09:07→12:57)
[2019-07-11] MEDS: NEPHRO-VITE PO SCH (09:07)
[2019-07-11] MEDS: PERICOLACE PO SCH (09:07)
[2019-07-11] MEDS: PROTONIX PO SCH (09:07)
--- NOTE | 2019-07-11 11:39 | GASTROENTEROLOGY PROGRESS NOTE ---
DATE: 07/11/2019 SUBJECTIVE: Mr. Tejada 44 year old male sitting at the side of the bed. Denied any nausea, vomiting, diarrhea, or abdominal pain and was ready to get his dialysis done. He said he was feeling much better. OBJECTIVE: Vital Signs: Temperature 98.2 degrees, pulse is 67, respirations 16, blood pressure is 143/70, oxygen saturation is 100% on room air. The patient's weight is 249.9 pounds. BMI is 36.9 kg/m2. General: He is alert and oriented x3, and in no acute distress. HEENT: Pale conjunctivae. No icterus. PERRL. Neck: Supple. Lungs: Clear to auscultation in the anterior and posterior renee. Cardiovascular: Regular rate and rhythm. No murmurs, rubs, or gallops heard on auscultation. Abdomen: Soft, distended, and nontender. Active bowel sounds heard in all 4 quadrants. Extremities: No cyanosis, clubbing, or edema. Pedal pulses 2+ bilaterally. Neurologic: Alert and oriented x3. Labs: WBCs 5.52, RBCs 2.17, hemoglobin is 6.5, hematocrit is 20.5, platelet count is 155,000. Sodium is 140, potassium is 4.1, chloride is 97, carbon dioxide is 25, anion gap is 18, BUN is 111, creatinine is 15.2, glucose 99, calcium is 7.7, magnesium is 2.0. Ferritin is 965. Total bilirubin is 0.27, AST 9, ALT is 10, alkaline phosphatase is 46. CT of the abdomen and pelvis on 07/08/2019 showed several mildly distended gas-filled loops of small bowel that are nonspecific. Mild ileus. An EGD was done on 07/09/2019, It showed that the patient had two nonbleeding ulcers ranging from 3 to 5 cm in size and 3 to 7 cm in size in the pylorus. Mild duodenal inflammation was found in the duodenal bulb and first part of the duodenum. ASSESSMENT: 1. Gastrointestinal bleed. 2. Coffee-grounds emesis. 3. Anemia. 4. Endstage renal disease, on dialysis. 5. Hypertension. 6. History of large ulcers in 2019. 7. History of nonsteroidal anti-inflammatory drug abuse for chronic back pain. 8. History of obstructive sleep apnea. PLAN: We plan to continue with his GI prophylaxis, Protonix twice a day, for his GI bleed and ulcers. His hemoglobin and hematocrit today are 6.5 and 20.5. 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 The patient has denied any nausea, vomiting, or bleeding. We will continue to monitor his CBC and BMP, and follow the plan of care per the nephrology team and the primary care team. We will see him in our clinic as an outpatient for repeat EGD in 3 months to check for his ulcers. We have discussed this plan with the patient, he acknowledges understanding of the instructions. This plan was discussed with Dr. Mayfield. Please call us for any further questions or concerns. Dictated by LIZZ Cabello for Jabari Mayfield MD Physician Attestation I have seen and examined the patient. I have discussed and reviewed the the note by Sarah ZAMUDIO and agree with findings and plan as documented. Presented with NSAID-induced PUD. He is going to be transfused 2 units pRBCs today during dialysis. He is otherwise asymptomatic. Continue PPI BID and repeat EGD in 3 months to check for ulcer healing. Avoid NSAIDs/ASA MTDD
--- NOTE | 2019-07-11 13:23 | DISCHARGE SUMMARY ---
ADMISSION DATE: 07/08/2019 DISCHARGE DATE: 07/11/2019 DISCHARGE DIAGNOSES: 1. GI bleed. 2. Pyloric ulcers. 3. Gastric ulcers. 4. Duodenitis, but no ulcers. PROCEDURES: Endoscopy. CONSULTATIONS: 1. Dr. Pham, Nephrology. 2. Dr. Fitzgerald and Dr. Mayfield, Gastroenterology. HOSPITAL COURSE: Briefly, this is a 44-year-old male who had a pyloric channel ulcer history in 2018 and he has been on Protonix. I am not sure if he was still taking Protonix. He presented with anemia. Hemoglobin was 9, hematocrit was 28. He was observed. Nephrology was consulted and endoscopy was performed on the for Dr. Fitzgerald. Esophagus looked okay. He had 2 nonbleeding ulcers 3 to 5 mm in size and 3 to 7 mm in size in the pylorus. He had duodenal inflammation but no ulcers. He recommended omeprazole 40 daily for 90 days initially, but I think his hematocrit started dropping slowly. On the , it went to 7 and 21, on the 7 and 22, on the day of discharge it is 6.5 and 20. There is no further bleeding that we are aware of. We held off on any transfusion until the day of discharge because he is a transplant candidate. I think he is on the transplant list actively. He got dialysis per his usual schedule Tuesday, Tuesday, Tuesday. On the day of discharge he will be given 2 units of packed red blood cells with dialysis today, day of discharge. Otherwise, patient looks very well. His vital signs are stable. He is not tachycardic. Blood pressure 143/70, heart rate 67, afebrile. He is up and walking, so he has very well compensated hemoglobin and hematocrit. In any case, patient was evaluated and he will be sent home on the for management. He has been taking Aleve, which he probably should not be taking because he is a dialysis patient and definitely needs to avoid NSAIDs. Recommend repeat CBC in a week or so at the discretion of Nephrology. DISCHARGE MEDICATIONS: Are as follows: Amlodipine 10 b.i.d., folic acid daily, labetalol 300 b.i.d., ProAir 90 daily, sevelamer 800 t.i.d., Symbicort 1 puff daily, Icar C b.i.d., and Protonix 40 b.i.d. His INR was mildly elevated. His iron studies were pretty normal. Ferritin was high. Iron was high. His iron stores have been pretty well maintained. May need to consider hematology. In any case, patient is stable for discharge. Follow up with Dr. Pham as scheduled, Dr. Fitzgerald and Chaparro in [address] EGD. [address]. Vail in 1 to 2 weeks. 32 minute discharge. cc: Clint Cardona MD
[2019-07-11] MEDS: SYMBICORT 160/4.5 MICROGM INHALER INH SCH (16:04)
[2019-07-11 17:16] VITALS: BP 158/86
== END 2019-07-11 20:32 | disposition home or self-care (01) | DRG 377 ==
LOC: ED 06:22 → SUATTDRO 09:09 → 1N 09:09
PROVIDERS: ATTEND Internal Medicine